=== PATIENT | female | born 1965 | race Caucasian/White ===

== ENCOUNTER 2018-03-02 11:52 | Emergency (ER) | payer BC ==
[2018-03-02 12:12] VITALS: BP 129/73
--- NOTE | 2018-03-02 12:29 | UC ---
Skin Complaint HPI - HPI Summary HPI Summary: Pt presents with sudden onset of pruritic rash that began after wearing new pair of pants without washing them first on wednesday, february 28 2018. RAsh has resolved but still has c/o patches of "itchy skin that keeps me up at night." - History of Current Complaint Time Seen by Provider: 03/02/18 12:05 Stated Complaint: SKIN COMPLAINT Hx Obtained From: Patient Hx Last Menstrual Period: 02/16/18 ?: No Onset/Duration: Sudden Onset, Other - rash imporved since taking OTC benadryl, applying benadryl cream and hydrocortisone cream Timing: Constant Onset Severity: Moderate Current Severity: Mild Pain Intensity: 0 Location: Discrete, Other - bilateral lower extremities from thigh to mid calf Character: Pruritus Aggravating Factor(s): Touch Alleviating Factor(s): OTC Meds, Antihistamines, OTC Creams/Salves Associated Signs & Symptoms: Positive: Rash - Allergy/Home Medications Allergies/Adverse Reactions: Allergies Allergy/AdvReac Type Severity Reaction Status Date / Time No Known Allergies Allergy Verified 03/02/18 12:12 Home Medications: Home Medications DOXYcycline CAP(*) [DOXYcycline 100MG CAP(*)] 100 mg PO DAILY 03/02/18 [History Confirmed 03/02/18] Hydroxychloroquine TAB* [Plaquenil TAB*] 200 mg PO BID 03/02/18 [History Confirmed 03/02/18] Review of Systems Constitutional: Negative Skin: Rash Eyes: Negative ENT: Negative Respiratory: Negative Cardiovascular: Negative Gastrointestinal: Negative Genitourinary: Negative Motor: Negative Neurovascular: Negative Musculoskeletal: Negative Neurological: Negative Psychological: Negative Is Patient Immunocompromised?: No All Other Systems Reviewed And Are Negative: Yes PMH/Surg Hx/FS Hx/Imm Hx Previously Healthy: Yes - on plaquenil - Surgical History Surgical History: None - Social History Occupation: Employed Full-time Alcohol Use: Occasionally Substance Use Type: None Smoking Status (MU): Never Smoked Tobacco Have You Smoked in the Last Year: No Physical Exam Triage Information Reviewed: Yes Appearance: Well-Appearing Vital Signs: Initial Vital Signs Temp 98.9 F 03/02/18 12:03 Pulse 80 03/02/18 12:03 Resp 18 03/02/18 12:03 BP 129/73 03/02/18 12:03 Pulse Ox 100 03/02/18 12:03 Vital Signs Reviewed: Yes Eye Exam: Normal ENT Exam: Normal Dental Exam: Normal Neck exam: Normal Respiratory Exam: Normal Cardiovascular Exam: Normal Musculoskeletal Exam: Normal Neurological Exam: Normal Psychological Exam: Normal Skin Exam: Normal Course/Dx - Course Course Of Treatment: I discussed with the pt how her rash was not visible to me but pt requested prednisone for her significant c/o pruritis. I discussed the possible adverse side effects and pt requested medication. - Differential Diagnoses - Skin Complaint Differential Diagnoses: Allergic Reaction, Contact Dermatitis - Diagnoses Provider Diagnoses: contact dermatitis. pruritic skin bilateral lower extremities Discharge - Sign-Out/Discharge Documenting (check all that apply): Patient Departure - Discharge Plan Condition: Stable Disposition: HOME Prescriptions: predniSONE TAB* [Deltasone 20 MG TAB*] 20 mg PO DAILY #3 tab Patient Education Materials: Contact Dermatitis (ED) Referrals: [facility] [place] [facility] [Outside] No Primary Care Phys,NOPCP [Primary Care Provider] - - Billing Disposition and Condition Condition: STABLE Disposition: Home
== END 2018-03-02 12:33 | disposition home or self-care (01) ==
LOC: UCCORT 11:52
DX: L25.8 Unspecified contact dermatitis due to other agents (principal); L29.8 Other pruritus
CPT/HCPCS: 99202; G0463